=== PATIENT | male | born 1935 | race Caucasian/White ===

== ENCOUNTER 2016-12-23 04:44 | Inpatient (IN) | payer OTHER ==
[~2016-12-23] VITALS: Ht 165.1 cm; Wt 83.9 kg
[~2016-12-23 04:44] MED LIST: GLU500 PO; HYDR12.585 PO; HYT1 GT; LOSA100T11 PO; NAPR-688 PO; SIMV40TA2 PO
[2016-12-23] MEDS ORDERED: CELECOXIB 200 MG CAPSULE ONE (05:23)
[2016-12-23] MEDS ORDERED: ACETAMINOPHEN 500 MG TABLET ONE (05:24)
[2016-12-23] MEDS ORDERED: GABAPENTIN 300 MG CAPSULE ONE (05:24)
[2016-12-23] MEDS ORDERED: oxyCODONE HCL 10 MG TAB.ER.12H PO ONE ×2 (05:25→07:30)
[2016-12-23] MEDS ORDERED: CEFAZOLIN 2 GM IVPB PREMIX 50 ML IV ONE ×2 (05:26→07:30)
[2016-12-23] MEDS ORDERED: TRANEXAMIC ACID 650 MG TABLET ONE (05:26)
[2016-12-23] MEDS ORDERED: MORPHINE SULFATE 10MG/10ML PF AMP EP ONE (06:15)
[2016-12-23] MEDS ORDERED: EPINEPHrine 1 MG/ML AMP IVP ONE (06:15)
[2016-12-23] MEDS ORDERED: ROPIVACAINE 0.2% (NAROPIN) PF SOLUTION 100 ML BOTTLE EP ONE (06:15)
[2016-12-23] MEDS ORDERED: PROPOFOL 200MG/ 20ML VIAL (DIPRIVAN) IV ONE (06:15)
[2016-12-23] MEDS ORDERED: DEXAMETHASONE SOD PHOSPHATE 4 MG/ML VIAL IVP ONE (06:15)
[2016-12-23] MEDS ORDERED: fentaNYL CITRATE 250 MCG/5 ML AMP IV ONE (06:15)
[2016-12-23] MEDS ORDERED: ONDANSETRON HCL 4 MG/2 ML VIAL IVP ONE (06:15)
[2016-12-23] MEDS ORDERED: NS 100 ML BAG IV ONE (06:15)
[2016-12-23] MEDS ORDERED: LIDOCAINE 2%, 20 ML MDV INJ ONE (06:15)
[2016-12-23] MEDS ORDERED: SODIUM BICARBONATE 4% (NEUT) 5 ML VIAL INJ ONE (06:15)
[2016-12-23] MEDS ORDERED: LR 1,000 ML IV.SOLN IV ONE (06:15)
[2016-12-23] MEDS ORDERED: ROCURONIUM BROMIDE 10 MG/ML (ZEMURON) IV ONE (06:15)
[2016-12-23] MEDS ORDERED: BUPIVACAINE /EPINEPHRINE/PF 0.5% 30 ML VIAL INJ ONE (06:15)
[2016-12-23] MEDS ORDERED: KETOROLAC TROMETHAMINE 30 MG VIAL IVP ONE (06:15)
[2016-12-23] MEDS ORDERED: VANCOMYCIN HCL 1000 MG/VIAL IV ONE (06:15)
[2016-12-23] MEDS ORDERED: SEVOFLURANE 15 MIN GAS INH ONE (06:15)
[2016-12-23] MEDS ORDERED: MIDAZOLAM HCL 5 MG/5 ML VIAL IVP ONE (06:15)
[2016-12-23] MEDS ORDERED: ROPIVACAINE HCL/PF 5 MG/ML 0.5% 30 ML VIAL INJ ONE (06:15)
[2016-12-23] MEDS ORDERED: POLYMYXIN 500,000/BACIT.10,000 UNITS in NS IRR 1 L IR ONE (06:49)
[2016-12-23] MEDS ORDERED: ACETAMINOPHEN 500 MG TABLET PO ONE (07:30)
[2016-12-23] MEDS ORDERED: CELECOXIB 200 MG CAPSULE PO ONE (07:30)
[2016-12-23] MEDS ORDERED: GABAPENTIN 300 MG CAPSULE PO ONE (07:30)
[2016-12-23] MEDS ORDERED: LR 1,000 ML IV ONE (07:30)
[2016-12-23] MEDS ORDERED: TRANEXAMIC ACID 650 MG TABLET PO ONE (07:30)
[2016-12-23] MEDS ORDERED: KETOROLAC TROMETHAMINE 30 MG VIAL ONE (08:05)
[2016-12-23] MEDS ORDERED: LR 1,000 ML IV SCH (08:06)
[2016-12-23] MEDS ORDERED: ROPIVACAINE 0.2% 100 ML INJ SCH (08:06)
[2016-12-23] MEDS ORDERED: ACETAMINOPHEN I.V. 1000 MG 100 ML IV PRN (08:15)
[2016-12-23] MEDS ORDERED: HYDROmorphone 2 MG/ML VIAL IVP PRN ×2 (08:15)
[2016-12-23] MEDS ORDERED: MEPERIDINE HCL/PF 25 MG/ML DISP.SYRIN IVP PRN (08:15)
[2016-12-23] MEDS ORDERED: HYDROcodone/ACETAMIN 10-325 MG TAB PO PRN ×2 (08:15)
[2016-12-23] MEDS ORDERED: HYDROmorphone 1 MG INJ. 1 MG/ML AMPUL IVP PRN (08:15)
[2016-12-23] MEDS: ROPIVACAINE 0.2% 550 ML INJ SCH (09:02)
[2016-12-23] MEDS ORDERED: DIPHENHYDRAMINE HCL 25 MG CAPSULE PO PRN (09:15)
[2016-12-23] MEDS ORDERED: PROMETHAZINE HCL 25 MG/ML AMP IVP PRN (09:15)
[2016-12-23] MEDS ORDERED: oxyCODONE HCL 5 MG TABLET PO PRN ×2 (09:15)
[2016-12-23] MEDS ORDERED: ONDANSETRON HCL 4 MG/2 ML VIAL IVP PRN (09:15)
[2016-12-23] MEDS ORDERED: SENNOSIDES 8.6 MG TABLET PO PRN (09:15)
[2016-12-23] MEDS ORDERED: KETOROLAC TROMETHAMINE 15 MG VIAL IVP PRN (09:15)
[2016-12-23] MEDS ORDERED: MORPHINE 4 MG/ML INJ. SYRINGE IVP PRN (09:15)
[2016-12-23 10:20] VITALS: BP_SYST 137
[2016-12-23] MEDS: CEFAZOLIN 1 GM IVPB PREMIX 50 ML IV SCH ×2 (12:36→18:37)
[2016-12-23] MEDS ORDERED: DEXTROSE 50%-WATER 50 ML DISP.SYRIN IVP PRN ×2 (15:45)
[2016-12-23] MEDS ORDERED: GLUCOSE 15 GM GEL (in 37.5 GM TUBE) PO PRN ×2 (15:45)
[2016-12-23] MEDS: ACETAMINOPHEN 500 MG TABLET PO SCH ×2 (16:14→20:48)
[2016-12-23 17:04] VITALS: BP_SYST 143
[2016-12-23] MEDS: RIVAROXABAN 10 MG TABLET PO SCH (17:32)
[2016-12-23] MEDS: INSULIN REGULAR, HUMAN 100 UNITS/ML, 10 ML VIAL (novoLIN R) SUBCUT PRN (17:36)
[2016-12-23] MEDS: LR 1,000 ML IV SCH ×2 (17:45→20:45)
[2016-12-23] MEDS ORDERED: metFORMIN HCL 500 MG TABLET PO SCH (18:00)
[2016-12-23 20:00] VITALS: BP_SYST 132
[2016-12-23] MEDS: CELECOXIB 200 MG CAPSULE PO SCH (20:48)
[2016-12-23] MEDS: GABAPENTIN 300 MG CAPSULE PO SCH (20:48)
[2016-12-24] VITALS (7 sets, daily range): BP systolic 103–136
[2016-12-24] MEDS: CEFAZOLIN 1 GM IVPB PREMIX 50 ML IV SCH (02:56)
[2016-12-24] MEDS: LR 1,000 ML IV SCH ×2 (04:30→20:12)
[2016-12-24 06:55] LABS: ANION GAP 0 (5-15); CALCIUM 7.8 mg/dL (8.4-11.0); CHLORIDE 109 mmol/L (98-107); CREATININE 0.96 mg/dL (0.55-1.30); GLUCOSE 125 mg/dL (70-99); POTASSIUM 3.8 mmol/L (3.5-5.1); SODIUM SERUM 137 mmol/L (136-145); UREA NITROGEN, BLOOD 22 mg/dL (8-21)
[2016-12-24 07:02] LABS: BASOPHILS % (AUTO) 0.1 % (0.0-2.0); EOSINOPHILS # (AUTO) 0.1 K/uL (0.0-0.4); EOSINOPHILS % (AUTO) 0.5 % (0.0-4.0); HEMATOCRIT 31.1 % (36-54); HEMOGLOBIN 10.5 g/dL (14.0-18.0); LYMPHOCYTES # (AUTO) 1.1 K/uL (1.0-5.5); LYMPHOCYTES % (AUTO) 10.6 % (20.5-51.5); MEAN CORPUSCULAR HEMOGLOBIN 32 pg (27-31); MEAN CORPUSCULAR HGB CONC 34 % (32-36); MEAN CORPUSCULAR VOLUME 95 fL (79.0-98.0); MONOCYTES % (AUTO) 9.6 % (1.7-9.3); NEUTROPHILS # (AUTO) 7.9 K/uL (1.8-7.7); NEUTROPHILS % (AUTO) 79.2 % (40.0-70.0); PLATELET COUNT (AUTO) 158 K/uL (130-430); RED BLOOD CELL COUNT(AUTO) 3.28 MIL/uL (4.2-6.2); RED CELL DISTRIBUTION WIDTH 13.8 % (9.0-15.0); WHITE BLOOD COUNT (AUTO) 10.1 K/uL (4.8-10.8)
[2016-12-24] MEDS: CELECOXIB 200 MG CAPSULE PO SCH ×2 (08:46→20:13)
[2016-12-24] MEDS: LOSARTAN POTASSIUM 50 MG TABLET (COZAAR) PO SCH (08:47)
[2016-12-24] MEDS: TERAZOSIN HCL 5 MG CAPSULE (HYTRIN) GT SCH (08:48)
[2016-12-24] MEDS: SIMVASTATIN 40 MG TABLET PO SCH (08:48)
[2016-12-24] MEDS: HYDROCHLOROTHIAZIDE 12.5 MG CAPSULE (HCTZ) PO SCH (08:48)
[2016-12-24] MEDS: ACETAMINOPHEN 500 MG TABLET PO SCH ×3 (08:51→20:13)
[2016-12-24] MEDS: INSULIN REGULAR, HUMAN 100 UNITS/ML, 10 ML VIAL (novoLIN R) SUBCUT PRN (17:41)
[2016-12-24] MEDS: RIVAROXABAN 10 MG TABLET PO SCH (17:53)
[2016-12-24] MEDS: GABAPENTIN 300 MG CAPSULE PO SCH (20:13)
[2016-12-25] MEDS: LR 1,000 ML IV SCH ×2 (01:02→11:02)
[2016-12-25 03:37] VITALS: BP_SYST 113
[2016-12-25 06:53] LABS: BASOPHILS % (AUTO) 0.2 % (0.0-2.0); EOSINOPHILS # (AUTO) 0.2 K/uL (0.0-0.4); EOSINOPHILS % (AUTO) 3.9 % (0.0-4.0); HEMATOCRIT 31.5 % (36-54); HEMOGLOBIN 10.5 g/dL (14.0-18.0); LYMPHOCYTES % (AUTO) 19.9 % (20.5-51.5); MEAN CORPUSCULAR HEMOGLOBIN 32 pg (27-31); MEAN CORPUSCULAR HGB CONC 33 % (32-36); MEAN CORPUSCULAR VOLUME 95 fL (79.0-98.0); MONOCYTES # (AUTO) 0.6 K/uL (0.0-1.0); MONOCYTES % (AUTO) 12.2 % (1.7-9.3); NEUTROPHILS # (AUTO) 3.5 K/uL (1.8-7.7); NEUTROPHILS % (AUTO) 63.8 % (40.0-70.0); PLATELET COUNT (AUTO) 159 K/uL (130-430); RED BLOOD CELL COUNT(AUTO) 3.31 MIL/uL (4.2-6.2); RED CELL DISTRIBUTION WIDTH 14.1 % (9.0-15.0)
[2016-12-25 07:03] LABS: WHITE BLOOD COUNT (AUTO) 5.3 K/uL (4.8-10.8)
[2016-12-25 07:18] LABS: ANION GAP 4 (5-15); CHLORIDE 108 mmol/L (98-107); CREATININE 0.88 mg/dL (0.55-1.30); GLUCOSE 91 mg/dL (70-99); POTASSIUM 3.9 mmol/L (3.5-5.1); SODIUM SERUM 142 mmol/L (136-145); UREA NITROGEN, BLOOD 21 mg/dL (8-21)
[2016-12-25 08:14] VITALS: BP_SYST 140
[2016-12-25] MEDS: HYDROCHLOROTHIAZIDE 12.5 MG CAPSULE (HCTZ) PO SCH (08:34)
[2016-12-25] MEDS: ACETAMINOPHEN 500 MG TABLET PO SCH (08:35)
[2016-12-25] MEDS: TERAZOSIN HCL 5 MG CAPSULE (HYTRIN) GT SCH (08:35)
[2016-12-25] MEDS: SIMVASTATIN 40 MG TABLET PO SCH (08:35)
[2016-12-25] MEDS: LOSARTAN POTASSIUM 50 MG TABLET (COZAAR) PO SCH (08:36)
[2016-12-25] MEDS: CELECOXIB 200 MG CAPSULE PO SCH (08:36)
[2016-12-25] MEDS: ROPIVACAINE 0.2% 550 ML INJ SCH ×2 (08:36→09:02)
[2016-12-25 11:23] VITALS: BP_SYST 123
[2016-12-25 12:15] VITALS: BP_SYST 102
[2016-12-26 12:00] VITALS: BP_SYST 101
== END 2016-12-25 14:00 | DRG 470 ==
LOC: SMU 04:44 → STU 10:20
PROVIDERS: ADMIT Orthopaedic Surgery; ATTEND Orthopaedic Surgery
PROC: 3E0T3CZ (ICD-10-PCS; 2016-12-23)
PROC: 0SRC0J9 Replacement of Right Knee Joint with Synthetic Substitute, Cemented, Open Approach (ICD-10-PCS; principal; 2016-12-23 07:30)
DX: M17.11 Unilateral primary osteoarthritis, right knee (principal); M25.761 Osteophyte, right knee; E11.9 Type 2 diabetes mellitus without complications; I10 Essential (primary) hypertension; Z79.899 Other long term (current) drug therapy; Z79.4 Long term (current) use of insulin; Z79.01 Long term (current) use of anticoagulants; I95.9 Hypotension, unspecified
CPT/HCPCS: 36415; 80048; 82947-TC; 82962; 85025; 87081; 88305; 88311; 93005; 97039; 97110-GP; 97116-GP; 97530-GP; C1713; C1776; J0171; J0690; J1100; J1815; J1885; J2001; J2250; J2274; J2405; J2704; J2795; J3010; J3370; J3490; J7120